=== PATIENT | female | born 2000 | race Caucasian/White ===

== ENCOUNTER 2022-10-06 19:03 | Emergency (ER) | payer MEDICAID ==
[~2022-10-06] VITALS: Ht 165.1 cm; Wt 137.4 kg
[2022-10-06 19:53] VITALS: BP_SYST 139
--- NOTE | 2022-10-06 19:53 | NUR ---
Triaged and placed patient back to the waiting room. No acute respiratory distress at this time. VSS. Informed patient to notify ED staff for any changes in condition or worsening of symptoms while waiting to be seen by a provider. Patient verbalized understanding.
--- NOTE | 2022-10-06 21:29 | NUR ---
Patient placed in ER Hallway 2 for evaluation. Bed in lowest position with siderails up. Instructed to notify ED staff for any changes in condition or worsening of symptoms. Patient verbalized understanding.
[2022-10-06] MEDS ORDERED: cefTRIAXone 1 GM in LIDOCAINE 1%, 20 ML MDV 2.1 ML IM ONE (21:30)
--- NOTE | 2022-10-06 21:31 | NUR ---
Note undone in [facility] - 10/06/22 at 2131 by SDEDAJF RAINER [email or web address][] at bedside examining patient. Addendum: 10/06/22 at 2131 by [email or web address] Amendment undone in [facility] - 10/06/22 at 2131 by SDEDAJF RAINER Nash at chair side examining patient.
--- NOTE | 2022-10-06 21:33 | NUR ---
ER Dr. Nash at chair side examining patient.
[2022-10-06] MEDS ORDERED: LEVO750T64 PO (21:38)
[2022-10-06] MEDS ORDERED: NAPR-690 PO (21:38)
[2022-10-06 21:42] VITALS: BP_SYST 116
--- NOTE | 2022-10-06 21:42 | NUR ---
Patient given written and verbal discharge instructions BY DR. BOYD and verbalizes understanding. ER MD discussed with patient the results and treatment provided. Patient in stable condition. ID arm band removed. Rx of LEVAQUIN AND NAPROXEN given. Patient educated on pain management and to follow up with PMD. Pain Scale 0/10. Opportunity for questions provided and answered. Medication side effect fact sheet provided.
== END 2022-10-06 21:42 | disposition home or self-care (01) ==
LOC: SED 19:03
DX: J02.9 Acute pharyngitis, unspecified (principal); R50.9 Fever, unspecified; M79.10 Myalgia, unspecified site; Z88.0 Allergy status to penicillin; Z79.899 Other long term (current) drug therapy
CPT/HCPCS: 99283; 96372; J0696; J2001